=== PATIENT | male | born 1970 | race African-American/Black ===

== ENCOUNTER 2018-03-16 22:56 | Emergency (ER) | payer OTHER ==
[~2018-03-16] VITALS: Ht 172.7 cm; Wt 106.6 kg
[~2018-03-16 22:56] MED LIST: FLOMAX0.4 MG PO; PROAIR RESPICL90 MCG IH; QVAR 40 MCG IN7.3 GM IH; TYLENOL REGULA325 MG PO
[2018-03-16 23:13] LABS: HEMATOCRIT 44.4 % (38.0-50.0); HEMOGLOBIN 15.2 G/DL (12.5-16.6); MCH 30.2 PG (29.0-34.0); MCHC 34.2 G/DL (30.0-36.0); MCV 88.3 FL (86-99); PLATELET COUNT 315 K/uL (156-360); RBC DIS.WIDTH-CV 11.8 % (11.8-14.6); RBC DIS.WIDTH-SD 37.6 % (39-53); RED BLOOD COUNT 5.03 M/uL (4.00-5.50)
[2018-03-16 23:24] LABS: ALBUMIN 4.3 g/dL (3.2-4.8); CHLORIDE 100 mEq/L (99-109); POTASSIUM 3.4 mEq/L (3.7-5.4); SODIUM 138 mEq/L (136-147)
[2018-03-16 23:26] LABS: GLUCOSE 166 mg/dL (70-99)
[2018-03-16 23:28] LABS: TOTAL BILIRUBIN 0.8 mg/dL (0.0-1.0)
[2018-03-16 23:29] LABS: SERUM ETHYL ALCOHOL 27 mg/dL
[2018-03-16 23:30] LABS: ALKALINE PHOSPHATASE 78 IU/L (3-129); CREATININE 1.1 mg/dL (0.6-1.3); GFR ESTIMATE (CALCULATED) > 59 mL/min/ (58.99-99999)
[2018-03-16 23:31] LABS: AST (GOT) 50 IU/L (2-34)
[2018-03-16 23:32] LABS: UREA NITROGEN (BUN) 9 mg/dL (9-23)
[2018-03-16 23:33] LABS: SALICYLATE < 5.0 MG/DL (15-30)
[2018-03-16 23:34] LABS: ACETAMINOPHEN (TYLENOL) < 10 mcg/mL (10-30); ALT (GPT) 83 IU/L (3-49)
[2018-03-16 23:53] LABS: APPEARANCE CLEAR ((CLEAR)); BILIRUBIN NEGATIVE; BLOOD NEGATIVE; COLOR YELLOW ((YELLOW)); GLUCOSE (STRIP) NEGATIVE; KETONES 5; LEUKOCYTES NEGATIVE; NITRITE NEGATIVE; PROTEIN (STRIP) 30; SPECIFIC GRAVITY 1.016 (1.000-1.030); UCUL ADDED? NO
[2018-03-17 00:15] LABS: AMPHETAMINE NEGATIVE (500 ng/mL); BARBITURATES NEGATIVE (200 ng/mL); BENZODIAZEPINES NEGATIVE (150 ng/mL); BUPRENORPHINE NEGATIVE (10 ng/mL); COCAINE PRESUMPTIVE POSITIVE (150 ng/mL); METHADONE NEGATIVE (200 ng/mL); METHAMPHETAMINE NEGATIVE (500 ng/mL); OPIATES (MORPHINE) NEGATIVE (100 ng/mL); OXYCODONE NEGATIVE (100 ng/mL); PHENCYCLIDINE NEGATIVE (25 ng/mL); PROPOXYPHENE NEGATIVE (300 ng/mL); THC CANNABINOIDS NEGATIVE (50 ng/mL); TRICYCLIC ANTIDEPRESSANTS NEGATIVE (300 ng/mL)
[2018-03-17] MEDS ORDERED: MOTRIN800 MG PO (00:57)
[2018-03-17] MEDS ORDERED: NARCAN4 MG NS (00:59)
[2018-03-17 01:35] VITALS: BP 112/68
== END 2018-03-17 01:40 | disposition home or self-care (01) ==
LOC: EME → EDBD 22:56 → EME 03-17 01:40
PROVIDERS: Emergency Medicine
DX: R11.0 Nausea (principal); T40.1X1A Poisoning by heroin, accidental (unintentional), initial encounter; S43.401A Unspecified sprain of right shoulder joint, initial encounter; Y92.009 Unspecified place in unspecified non-institutional (private) residence as the place of occurrence of the external cause; N40.0 Benign prostatic hyperplasia without lower urinary tract symptoms; J45.909 Unspecified asthma, uncomplicated; F17.200 Nicotine dependence, unspecified, uncomplicated
CPT/HCPCS: 71045; 73030; 80053; 81003; 84999; 85027; 86226 90; 93005; 99281; 99284; G0480